=== PATIENT | female | born 1970 | race Caucasian/White ===

== ENCOUNTER → 2023-04-25 13:26 | Outpatient (CLI) | payer OTHER, SELFPAY ==
[2023-04-27 11:09] LABS: Fecal Immunochemical Test Negative (Negative)
== END ==
PROVIDERS: Visit Provider Family Medicine
DX: Z12.11 Encounter for screening for malignant neoplasm of colon (principal)
CPT/HCPCS: 82274

== ENCOUNTER → 2023-09-12 09:34 | Outpatient (CLI) | payer BC, SELFPAY ==
[2023-09-12 19:30] LABS: Alanine Aminotransferase 24 IU/L (<35); Albumin 4.2 g/dL (3.5-5.0); Albumin Globulin Ratio 1.4 (1.0-2.8); Alkaline Phosphatase 75 U/L (38-126); Aspartate Aminotransferase 22 IU/L (14-36); BUN Creatinine Ratio 20.9 (6-22); Bilirubin Total 0.6 mg/dL (0.2-1.3); Blood Urea Nitrogen 14 mg/dL (7-17); Calcium 9.6 mg/dL (8.4-10.2); Carbon Dioxide 26 mmol/L (22-32); Chloride 100 mmol/L (98-107); Cholesterol 201 mg/dL (140-199); Estimated Glomerular Filt Rate > 60 mL/min (>60); Globulin 3.1 g/dL (1.7-4.1); Glucose 109 mg/dL (70-100); HDL Cholesterol 58 mg/dL (40-60); HEMOLYSIS 21 (0-50); LDL Cholesterol Calculated 100 mg/dL (<100); Potassium 4.3 mmol/L (3.4-5.1); Sodium 136 mmol/L (137-145); Total Protein 7.3 g/dL (6.3-8.2); Triglycerides 213 mg/dL (35-150)
== END ==
PROVIDERS: PCP Family Medicine; Visit Provider Family Medicine
DX: E78.2 Mixed hyperlipidemia (principal); I10 Essential (primary) hypertension
CPT/HCPCS: 80053; 80061

== ENCOUNTER 2024-07-13 11:15 | Emergency (ER) | payer BC, SELFPAY ==
[2024-07-13 11:24] VITALS: BP 144/86; PULSE 80; RESP 16; TEMP 36.6; O2SAT 95; BMI 40.4
--- NOTE | 2024-07-13 11:31 | DI.RAD.S_ITS ---
PROCEDURE: XR KNEE RT 3V INDICATIONS: pain glynn swelling TECHNIQUE: 3 views of the knee were acquired. COMPARISON: None. FINDINGS: Bones: No fractures or dislocations. No suspicious bony lesions. Tricompartmental osteoarthrosis. Soft tissues: Small joint effusion. No suspicious soft tissue calcifications. IMPRESSION: No acute bony abnormality . Small joint effusion. Tricompartmental osteoarthrosis. If there are persistent symptoms or clinical suspicion for pathology, then repeat radiographs or advanced imaging (CT or MRI) may be considered for further evaluation. Dictated by: Jackson Pineda M.D. on 07/13/2024 at 11:57 Approved by: Jackson Pineda M.D. on 07/13/2024 at 11:58
--- NOTE | 2024-07-13 11:32 | ED_ITS ---
HPI - Extremity Injury (Lower) <Kesha Lezama PA-C - Last Filed: 07/13/24 12:54> General Chief Complaint: Extremity Injury, Lower Stated Complaint: Can't put weight on R Leg Time Seen by Provider: 07/13/24 11:21 History of Present Illness HPI Narrative: Patient is a very pleasant 54-year-old female that presents to the emergency room department with right knee pain. Patient has had knee pain ongoing for the past 2 weeks, she has been kind of babying it. She played pickleball, she had been working in the garden, then pretty active and is caused some knee soreness. Yesterday the patient was just doing normal activities then all of a sudden had sudden onset of severe right knee pain. The knee pain has increased, and now currently she is having severe right knee pain to the point that she is unable to put any weight on the knee, she has had some mild soft tissue swelling. The patient has been resting it, elevating it, using ice, and nonsteroidals. 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 She has no other physical complaints currently at this time. Injury was yesterday, 3 when she sitting, 5 when she is attempting to move the leg. At rest it is better, exacerbation with movement and attempting to put pressure on the knee. Related Data Previous Rx's Medication Instructions Recorded metformin 500 mg tablet 500 mg PO DAILY diabetes 12/07/23 prevention #90 tabs atorvastatin 20 mg tablet 20 mg PO BEDTIME for cholesterol 05/23/24 #90 tabs lisinopril 5 mg tablet 5 mg PO DAILY for blood pressure. 05/23/24 take every day even if normal #90 tabs fluvoxamine 100 mg tablet 200 mg (2 x 100 mg) PO BEDTIME 07/11/24 #180 tabs ketorolac 10 mg tablet 10 mg PO Q8H PRN pain #14 tabs 07/13/24 Allergies Allergy/AdvReac Type Severity Reaction Status Date / Time codeine AdvReac Mild Vomiting Verified 07/13/24 11:33 Review of Systems <Kesha Lezama PA-C - Last Filed: 07/13/24 12:54> Review of Systems Narrative: Negative except as above Musculoskeletal Comments: Right knee pain Patient History <Kesha Lezama PA-C - Last Filed: 07/13/24 12:54> Medical History Migraines Class 3 obesity Mixed hyperlipidemia Depression HTN (hypertension) Social History Smoking Status: Never smoker additional social history: moved here December 2022 from [place], 1 yr in [place]. 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 need pap and HPV results -- the one she released the records for -- need pap and HPV colon: FIT test yearly -- [place] Perimenopause-- irregular heavy , spotting, 1-3 months. for several years. 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 exercise: pickle ball, hiking. eat: last weight on a keto diet emotional eater FHX: no cancer in her family. HTN, cholesterol. no CO. mom -- TIAs maybe., and osteoporosis GP with DM2 tob: never etoh: 3-4 beers per week. 06/2023 Smoking Status: Never smoker alcohol intake frequency: a few times a week Substance Use Type: does not use Exam <Kesha Lezama PA-C - Last Filed: 07/13/24 12:54> Initial Vital Signs Initial Vital Signs: Vital Signs Temperature 98 F 07/13/24 11:24 Pulse Rate 80 07/13/24 11:24 Respiratory Rate 16 07/13/24 11:24 Blood Pressure 144/86 H 07/13/24 11:24 Pulse Oximetry 95 07/13/24 11:24 Oxygen Delivery Method Room Air 07/13/24 11:24 Reviewed Const Other: Pleasant 54-year-old female appears older than stated age. Moderately obese. Resting comfortably in the wheelchair. Here with her . 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 Patient has crutches of her own and a knee sleeve at home. Eyes Other: Pupils are PERRLA, EOMs are intact. Skin Other: Warm to touch, minimal soft tissue swelling, no ecchymosis, cap refill is preserved. Pulses are present. Neuro Other: Cranial nerves are grossly intact, speech is intact, gait is not tested, patient wheelchair. Sensation is intact. Extrem Right lower extremity: normal to inspection, full ROM (Limited range of motion and discomfort with extension and flexion. Of the ), normal capillary refill and knee Details: tenderness, swelling and abnormal ROM (Flexion and extension cause her discomfort. No pain in the popliteal area.); Darin's Test not performed, no crepitus and no deformity <Dee Ayala DO - Last Filed: 07/25/24 07:30> Initial Vital Signs Initial Vital Signs: Vital Signs Temperature 98 F 07/13/24 11:24 Pulse Rate 80 07/13/24 11:24 Respiratory Rate 16 07/13/24 11:24 Blood Pressure 144/86 H 07/13/24 11:24 Pulse Oximetry 95 07/13/24 11:24 Oxygen Delivery Method Room Air 07/13/24 11:24 Course <Kesha Lezama PA-C - Last Filed: 07/13/24 12:54> Orders Ordered: Discontinued Medications Ketorolac Tromethamine (Ketorolac 30 Mg/Ml Vial) 30 mg IM NOW ONE Stop: 07/13/24 11:32 Last Admin: 07/13/24 11:49 Dose: 30 mg Documented By: MARITZA Vital Signs Vital signs: Vital Signs - 8 hr 07/13/24 11:24 Temperature 98 F Pulse Rate 80 Respiratory Rate 16 Blood Pressure 144/86 H Pulse Oximetry 95 Oxygen Delivery Method Room Air Reviewed <Dee Ayala DO - Last Filed: 07/25/24 07:30> Orders Ordered: Discontinued Medications Ketorolac Tromethamine (Ketorolac 30 Mg/Ml Vial) 30 mg IM NOW ONE Stop: 07/13/24 11:32 Last Admin: 07/13/24 11:49 Dose: 30 mg Documented By: MARITZA Vital Signs Vital signs: Vital Signs - 8 hr 07/13/24 11:24 Temperature 98 F Pulse Rate 80 Respiratory Rate 16 Blood Pressure 144/86 H Pulse Oximetry 95 Oxygen Delivery Method Room Air MDM - Extremity Injury (Lower) <Kesha Lezama PA-C - Last Filed: 07/13/24 12:54> Imaging Data Extremity x-ray #1: My Impression: Right knee x-ray; no acute findings, joint spaces normal, no acute fracture, sunrise view normal, no signs or symptoms joint effusion on x-ray or exam. Joint space is normal. No substantial signs of arthritis. Negative x-ray. MDM Narrative Medical decision making narrative: Pleasant 54-year-old female right knee pain. 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 Did not feel a pop. Pain is mostly with ambulation. Some minor soft tissue swelling. X-ray of the right knee to evaluate the joint space. No concerns for fracture. Patient has minimal tenderness along the ITB band or the medial compartment area. Patient with flexion-extension. Low suspicion for internal derangement. Toradol 30 mg IM Patient currently has crutches, and knee sleeve at home. Prescription will be sent to the [facility] in [place] Differential diagnosis; knee sprain, knee strain, internal derangement. Discharge Plan Departure Patient Disposition: Home Clinical Impression: Right knee sprain Qualifiers: Encounter type: initial encounter Involved ligament of knee: unspecified ligament Qualified Code(s): S83.91XA - Sprain of unspecified site of right knee, initial encounter Instructions: DI for Knee Sprain Activity Restrictions/Additional Instructions: Continue with rest, ice, elevation, nonweightbearing for 72 hours, progressed to toe-touch, then progress to full weight-bearing. Prescriptions: New ketorolac 10 mg tablet 10 mg PO Q8H PRN (Reason: pain) Qty: 14 0RF Rx Instructions: maximum total duration of 5 days from all oral, intranasal, or parenteral formulations No Action lisinopril 5 mg tablet 5 mg PO DAILY Qty: 90 0RF Rx Instructions: due for follow up visit with PCP JANUARY 2024. atorvastatin 20 mg tablet 20 mg PO BEDTIME Qty: 90 0RF Rx Instructions: DUE for follow up in January 2024. fluvoxamine 100 mg tablet 200 mg PO BEDTIME Qty: 180 1RF metformin 500 mg tablet 500 mg PO DAILY Qty: 90 3RF Referrals: Kesha Moon MD [Primary Care Provider] - Stand Alone Forms: Patient Portal/API ED Sign-out <Dee Ayala DO - Last Filed: 07/25/24 07:30> Cosign ED Attending Cosignature Attestation: I was available for consultation.
[2024-07-13] MEDS: KETOROLAC 30 MG/ML VIAL IM (11:49)
--- NOTE | 2024-07-13 12:15 | PC.NURSE ---
Pt states she has been having right knee pain x2 weeks but when she went to bear weight on her leg yesterday/today she was unable to do so. Pt states pain ranges from 3-5/10 to a 10. Knee is very slightly warmer when compared to left. Pt states she has had knee surgery on her left knee in the past.
[2024-07-13 12:25] VITALS: RESP 17
== END 2024-07-13 12:26 | disposition home or self-care (01) ==
PROVIDERS: Emergency Provider Physician Assistant; PCP Family Medicine
DX: S83.91XA Sprain of unspecified site of right knee, initial encounter (principal); Z79.899 Other long term (current) drug therapy
CPT/HCPCS: 73562; 96372; 99283; J1885

== ENCOUNTER → 2024-09-11 10:53 | Outpatient (CLI) | payer BC, SELFPAY ==
[2024-09-16 06:41] LABS: Fecal Immunochemical Test Negative (Negative)
== END ==
PROVIDERS: PCP Family Medicine; Referring Provider Family Medicine; Visit Provider Family Medicine
DX: R73.03 Prediabetes (principal); I10 Essential (primary) hypertension; E78.2 Mixed hyperlipidemia; Z12.11 Encounter for screening for malignant neoplasm of colon; Z72.820 Sleep deprivation; F32.A Depression, unspecified
CPT/HCPCS: 82274

== ENCOUNTER → 2024-09-12 09:00 | Outpatient (CLI) | payer BC, SELFPAY ==
[2024-09-12 19:02] LABS: Add Manual Diff / Slide Review NO; Basophils Absolute Auto 0 /uL (0-100); Basophils Percent Auto 0.3 % (0-2); Eosinophils Absolute Auto 300 /uL (0-450); Eosinophils Percent Auto 2.8 % (2-4); Hematocrit 43.8 % (36-46); Hemoglobin 14.8 g/dL (12.0-16.0); Lymphocytes Absolute Auto 2500 /uL (1100-4500); Lymphocytes Percent Auto 27.3 % (25-40); Mean Corpuscular HGB Conc 33.7 % (30-36); Mean Corpuscular Hemoglobin 30.7 PG (26-34); Mean Corpuscular Volume 91.1 fL (80-100); Monocytes Absolute Auto 700 /uL (0-900); Monocytes Percent Auto 7.9 % (3-14); Neutrophils Absolute Auto 5700 /uL (1500-7000); Neutrophils Percent Auto 61.7 % (50-75); Platelet Count 318 X10^3/uL (150-400); Red Blood Cell Count 4.81 X10^6/uL (4.0-5.2); Red Cell Distribution Width 12.8 % (11.6-14.8); White Blood Cell Count 9.3 X10^3/uL (4.5-11.0)
[2024-09-12 19:40] LABS: Thyroid Stimulating Hormone 1.25 uIU/mL (0.47-4.68)
[2024-09-12 19:41] LABS: Alanine Aminotransferase 32 IU/L (<35); Albumin 4.1 g/dL (3.5-5.0); Albumin Globulin Ratio 1.4 (1.0-2.8); Alkaline Phosphatase 73 U/L (38-126); Aspartate Aminotransferase 28 IU/L (14-36); BUN Creatinine Ratio 18.4 (6-22); Bilirubin Total 0.4 mg/dL (0.2-1.3); Blood Urea Nitrogen 14 mg/dL (7-17); Calcium 9.6 mg/dL (8.4-10.2); Carbon Dioxide 28 mmol/L (22-32); Chloride 102 mmol/L (98-107); Cholesterol 173 mg/dL (140-199); Estimated Glomerular Filt Rate > 60 mL/min (>60); Glucose 132 mg/dL (70-100); HDL Cholesterol 55 mg/dL (40-60); HEMOLYSIS < 15 (0-50); LDL Cholesterol Calculated 89 mg/dL (<100); Potassium 4.2 mmol/L (3.4-5.1); Sodium 137 mmol/L (137-145); Total Protein 7.1 g/dL (6.3-8.2); Triglycerides 143 mg/dL (35-150)
== END ==
PROVIDERS: PCP Family Medicine; Visit Provider Family Medicine
DX: Z00.00 Encounter for general adult medical examination without abnormal findings (principal); R73.03 Prediabetes; Z72.820 Sleep deprivation; Z12.11 Encounter for screening for malignant neoplasm of colon; I10 Essential (primary) hypertension; F32.A Depression, unspecified; E78.2 Mixed hyperlipidemia; E66.01 Morbid (severe) obesity due to excess calories
CPT/HCPCS: 80053; 80061; 84443; 85025

== ENCOUNTER → 2025-09-08 10:02 | Outpatient (CLI) | payer BC, SELFPAY ==
[2025-09-08 18:45] LABS: Add Manual Diff / Slide Review NO; Hematocrit 42.9 % (36-46); Hemoglobin 14.6 g/dL (12.0-16.0); Lymphocytes Absolute Auto 2400 /uL (1100-4500); Mean Corpuscular HGB Conc 34.0 % (30-36); Mean Corpuscular Hemoglobin 30.8 PG (26-34); Mean Corpuscular Volume 90.7 fL (80-100); Platelet Count 300 X10^3/uL (150-400)
[2025-09-08 18:46] LABS: Alanine Aminotransferase 28 IU/L (<35); Albumin 4.2 g/dL (3.5-5.0); Albumin Globulin Ratio 1.6 (1.0-2.8); Alkaline Phosphatase 74 U/L (38-126); Blood Urea Nitrogen 16 mg/dL (7-17); Calcium 9.3 mg/dL (8.4-10.2); Carbon Dioxide 28 mmol/L (22-32); Chloride 103 mmol/L (98-107); Cholesterol 167 mg/dL (140-199); Estimated Glomerular Filt Rate > 60 mL/min (>60); Globulin 2.6 g/dL (1.7-4.1); Glucose 144 mg/dL (70-99); HDL Cholesterol 56 mg/dL (40-60); HEMOLYSIS < 15 (0-50); Potassium 4.2 mmol/L (3.4-5.1); Sodium 141 mmol/L (137-145); Total Protein 6.8 g/dL (6.3-8.2); Triglycerides 170 mg/dL (35-150)
[2025-09-08 19:01] LABS: Hemoglobin A1C% w Est Avg Glu 7.1 % (4.0-6.0)
[2025-09-08 19:18] LABS: Thyroid Stimulating Hormone 1.10 uIU/mL (0.47-4.68)
== END ==
PROVIDERS: PCP Family Medicine; Visit Provider Family Medicine
DX: Z12.11 Encounter for screening for malignant neoplasm of colon (principal); Z12.39 Encounter for other screening for malignant neoplasm of breast; I10 Essential (primary) hypertension; E78.2 Mixed hyperlipidemia; R73.03 Prediabetes; E66.01 Morbid (severe) obesity due to excess calories
CPT/HCPCS: 80053; 80061; 83036; 84443; 85025